=== PATIENT | female | born 1955 | race Asian ===

== ENCOUNTER 2021-02-28 13:01 | Emergency (ER) | payer OTHER ==
[~2021-02-28] VITALS: Ht 165.1 cm; Wt 108.9 kg
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
[2021-02-28] MEDS ORDERED: HYDROCODONE/APAP 5/325MG TABLET ONE (14:51)
[2021-02-28] MEDS ORDERED: HYDROCODONE/APAP 5/325MG TABLET PO ONE (15:00)
--- NOTE | 2021-02-28 19:30 | NUR ---
Patient discharged to home in stable condition. Written and verbal after care instructions given. Patient verbalizes understanding of instruction.
[2021-02-28 20:43] VITALS: BP 150/78
== END 2021-02-28 19:32 | disposition home or self-care (01) ==
LOC: ER 13:20
DX: S40.812A Abrasion of left upper arm, initial encounter (principal); S50.812A Abrasion of left forearm, initial encounter; S50.312A Abrasion of left elbow, initial encounter; R07.81 Pleurodynia; E11.9 Type 2 diabetes mellitus without complications; V49.49XA Driver injured in collision with other motor vehicles in traffic accident, initial encounter; Y93.89 Activity, other specified; Y92.413 State road as the place of occurrence of the external cause; Y99.8 Other external cause status
CPT/HCPCS: 71100-TC